=== PATIENT | female | born 1945 | race Caucasian/White ===

== ENCOUNTER 2022-05-26 21:59 | Emergency (ER) | payer MEDICARE, OTHER ==
[~2022-05-26] VITALS: Ht 165.1 cm; Wt 88.5 kg
[~2022-05-26 21:59] MED LIST: COZAAR25 MG PO; DILTIAZEM HCL120 MG PO; LEVOTHYROXINE125 MCG PO; METOPROLOL SUCC25 MG PO
[2022-05-27] MEDS ORDERED: K-TAB ER20 MEQ PO (03:50)
--- NOTE | 2022-05-27 21:30 | EKG ---
[facility] [address] [facility] [place] [address] Signed Sinus rhythm with premature atrial complexes Right superior axis deviation Pulmonary disease pattern Right ventricular hypertrophy with repolarization abnormality Septal infarct , age undetermined Cannot rule out Inferior infarct , age undetermined Abnormal ECG No previous ECGs available Confirmed by CAROL LUCERO MD ([id number]) on 05/27/2022 9:30:21 PM Electronically Signed By: CAROL LUCERO MD 05/27/222129 PATIENT NAME: VITA OSORIO LIVAN Electrocardiogram DATE OF : 47 PHYSICIAN: CAROL LUCERO MD REPORT #: [id number] REPORT IS CONFIDENTIAL AND NOT TO BE RELEASED WITHOUT AUTHORIZATION
== END 2022-05-27 04:07 | disposition home or self-care (01) ==
LOC: ED 21:59
DX: R51.9 Headache, unspecified (principal); E87.6 Hypokalemia; R53.1 Weakness; E03.9 Hypothyroidism, unspecified; Z88.2 Allergy status to sulfonamides; Z88.5 Allergy status to narcotic agent; Z91.040 Latex allergy status; Z79.899 Other long term (current) drug therapy
CPT/HCPCS: 36415; 51701; 70450; 71045; 80053; 81003; 84484; 85025; 93005; 93010; 99285-25; A9270; G0480; J1200; J2765; J3480; J7040

== ENCOUNTER 2022-11-30 08:35 | Day surgery (SDC) | payer MEDICARE, OTHER ==
[2022-11-24 16:28] VITALS: BP 126/67
[~2022-11-30] VITALS: Ht 157.5 cm; Wt 55.6 kg
[~2022-11-30 08:35] MED LIST changes: +AMITRIPTYLINE H10 MG PO; +CARAFATE1 GM PO; +DONEPEZIL HCL10 MG PO; +K-TAB ER20 MEQ PO; +PROPRANOLOL HCL20 MG PO; +PROTONIX40 MG PO; +SIMVASTATIN10 MG PO
[2022-11-30 08:45] VITALS: BP 154/89
[2022-11-30] MEDS ORDERED: ARFORMOTER15 MCG/2 M INH (08:48)
[2022-11-30] MEDS ORDERED: BUDESONIDE0.25 MG/2 INH (08:49)
[2022-11-30] MEDS ORDERED: POTASSIUM CHLO20 MEQ PO (08:49)
[2022-11-30] MEDS ORDERED: ADULT LOW DOSE81 MG PO (09:10)
--- NOTE | 2022-11-30 10:20 | NUR ---
11/30/22 1020 Adele Sherwood 1015-PATIENT ARRIVED TO PACU ON 2L NC RR EVEN. PATIENT NONAORUSABLE SLEEPING WITH MOUTH OPEN SB/SR. IVF INFUSING. ABDOMEN SOFT. 1019-PATIENT SLIGHTLY OPENS EYES TO VERBAL STIMULI IMMEDIATELY CLOSES. SLEEPING 2L NC 99% RR EVEN
[2022-11-30 10:53] VITALS: BP 118/60
--- NOTE | 2022-11-30 13:25 | OR ---
[facility] [address] [place], [place] [address] Signed DATE OF OPERATION: 11/30/2022 SURGEON: Bernardo Myers MD PREOPERATIVE DIAGNOSES: 1. Epigastric abdominal pain. 2. Anorexia with weight loss. POSTOPERATIVE DIAGNOSIS: Unremarkable upper endoscopy. PROCEDURE: EGD with CLOtest and biopsies of the antrum. ESTIMATED BLOOD LOSS: None. INDICATIONS: Vita is a 77-year-old female with a significant past medical history as listed in the history and physical. For about a year now, she has been having epigastric abdominal pain within 10 to 15 minutes of eating. Therefore, she has been anorexic and losing weight. She tried Prilosec without improvement. She says she can chew the food fine and swallow it fine. There is no description of vomiting, nausea or early satiety. There is no description of any gastroparesis. She is switched over to Protonix and Carafate a few days ago. She has undergone a barium swallow in April of this year. This was unremarkable. She has no hiatal hernia, no esophageal dysmotility, no strictures and no ulcers. She had her gallbladder removed back in 1998. She was asked to see me in the office for consideration of upper endoscopy. She came with her daughter. She has been using protein shakes at home. She has a four wheeled walker. She is fairly frail if not close to being cachectic. Vita made it very clear she wants no heroic measures. However, she has no formal POLST form. I explained to Vita and her daughter this would be sewell to complete with the help of her primary care provider. I had given them a pamphlet on colonoscopy. She told me she has been through two prior colonoscopies in the past. Consequently, she understands the nature of the test. There is risk including, but not limited to gas bloating, crampy abdominal pain, bleeding, perforation requiring surgery, and missed diagnosis. We also reviewed the need for monitored anesthesia care given her advanced age and advanced medical issues and her frail nature. She had expressed understanding and wished to proceed. PROCEDURE NOTE: Electronically Signed By: BERNARDO MYERS MD 11/30/22 1325 PATIENT NAME: VITA OSORIO OPERATIVE REPORT DATE OF : 47 REPORT #: [id number] PHYSICIAN: BERNARDO MYERS MD PCP: JUAN J MORATAYA MD REPORT IS CONFIDENTIAL AND NOT TO BE RELEASED WITHOUT AUTHORIZATION [facility] [address] [place], [place] [address] Signed Vita was brought into our endoscopy suite and placed in the supine position under monitored anesthesia care with propofol infusion per our nurse crown wheel assembler. A bite block was utilized. The posterior oropharynx was anesthetized with Hurricaine spray. The adult gastroscope was introduced and advanced under direct visualization of the camera out into the third portion of the duodenum. She had very healthy light green bile in the duodenum. The duodenum and pyloric channel were unremarkable. The entire stomach was unremarkable. We saw no evidence of any inflammatory changes or ulcerations. We went ahead and took a biopsy of the antrum for CLOtest as well as pathologic review. Upon retroflexion of the scope, there was no evidence of hiatal hernia. The scope was withdrawn up through the area of the GE junction, which was compliant without stricture. There was no gastric or esophageal varices. There was minimal disruption to her Z-line. There was no De Leon's mucosa. There is no distal esophagitis. The middle and upper esophagus were unremarkable. No issues with the vocal cords or arytenoids. After this, the gas was suctioned out and the gastroscope removed. Vita tolerated the procedure quite well. RECOMMENDATIONS: Vita is welcome to follow up in my office in 7 to 14 days to review her results. There has been some question if she has Alzheimer's disease, but I do not see that listed in our history and physical. I will address that with Vita and her daughter. Bernardo Myers MD ALB/MODL /[id number] cc: MD Juan J Toney MD Copies: BERNARDO MYERS MD, RUSSELL BARR MD ~ Electronically Signed By: BERNARDO MYERS MD 11/30/22 1325 PATIENT NAME: VITA OSORIO LIVAN OPERATIVE REPORT DATE OF : 47 REPORT #: [id number] PHYSICIAN: BERNARDO MYERS MD PCP: JUAN J MORATAYA MD REPORT IS CONFIDENTIAL AND NOT TO BE RELEASED WITHOUT AUTHORIZATION
--- NOTE | 2022-12-07 12:06 | PATH ---
[facility] [address] [facility] [place], [place] [address] Signed SPECIMEN(S): A ANTRUM/ANTRAL BIOPSY SPECIMEN SOURCE: A. ANTRUM/ANTRAL BIOPSY CLINICAL HISTORY: Epigastric pain FINAL PATHOLOGIC DIAGNOSIS: Antrum/antral biopsy: - Benign gastric-type mucosa with superficial mild chronic gastritis. - Helicobacter pylori immunostain is negative for organisms. JVR:llc MICROSCOPIC EXAMINATION: Histologic sections of all submitted blocks are examined by light microscopy. These findings, together with the gross examination, support the pathologic diagnosis. H. pylori immunostain performed on block A1 is negative. JVR:llc GROSS DESCRIPTION: The specimen, labeled and designated "Dayna, L, stomach, antrum/pylorus biopsy," is received in formalin and consists of 1 rai soft tissue fragment measuring 0.3 x 0.5 cm and is submitted entirely in (A1). MMA (under the direct supervision of a pathologist) The Gross Description was prepared using a voice recognition system. The report was reviewed for accuracy; however, sound-alike word errors, addition and/or deletions may occur. If there is any question about this report, please contact Client Services. ADDITIONAL NOTES: Immunohistochemical and/or in situ hybridization studies were performed on this case with the appropriate positive controls that react as expected. This test was developed, and its performance characteristics determined by [facility] ([facility] It has not been cleared or approved by the U.S. Food and Drug Administration. The FDA has determined that such clearance or approval is not necessary. This test is used for clinical purposes. It should not be regarded as investigational or for research. [facility]) is certified under the PATIENT NAME: VITA OSORIO PATHOLOGY DATE OF : 47 REPORT #: [id number] PHYSICIAN: KISHA GALLARDO PCP: JUAN J MORATAYA MD REPORT IS CONFIDENTIAL AND NOT TO BE RELEASED WITHOUT AUTHORIZATION [facility] [address] [place], [place] [address], [place] [address] Signed Clinical Laboratory Improvement Amendments of 1988 (CLIA) as qualified to perform high complexity clinical laboratory testing. This assay has not been validated for specimens that have been decalcified. PERFORMING LABORATORY: Technical component was performed by [facility] ([facility]), [address] [place] [id number] (CLIA# [id number]). Professional interpretation was performed by [facility], [address] [place] [id number] (CLIA#: [id number]). Diagnostician: Bruno Baker MD Pathologist Electronically Signed 12/07/2022 Copies: ~ PATIENT NAME: VITA OSORIO PATHOLOGY DATE OF : 47 REPORT #: [id number] PHYSICIAN: KISHA PATHOLOGY PCP: JUAN J MORATAYA MD REPORT IS CONFIDENTIAL AND NOT TO BE RELEASED WITHOUT AUTHORIZATION
== END 2022-11-30 11:00 | disposition home or self-care (01) ==
LOC: DS 08:35 → OPS 08:35 → DS 11:45
PROVIDERS: ATTEND Colon & Rectal Surgery
PROC: 0DB68ZX Excision of Stomach, Via Natural or Artificial Opening Endoscopic, Diagnostic (ICD-10-PCS; principal; 2022-11-30 09:00)
DX: K29.50 Unspecified chronic gastritis without bleeding (principal); I10 Essential (primary) hypertension; I48.0 Paroxysmal atrial fibrillation; Z88.2 Allergy status to sulfonamides; Z88.1 Allergy status to other antibiotic agents; Z88.5 Allergy status to narcotic agent; I47.10 Supraventricular tachycardia, unspecified; E03.9 Hypothyroidism, unspecified
CPT/HCPCS: 00731; 36415; 87077; 88305; 88342; J0690; J2001; J2704; J7121

== ENCOUNTER 2023-01-19 07:49 | Emergency (ER) | payer MEDICARE, OTHER ==
[~2023-01-19] VITALS: Ht 157.5 cm; Wt 55.3 kg
[~2023-01-19 07:49] MED LIST changes: +ADULT LOW DOSE81 MG PO; +ARFORMOTER15 MCG/2 M INH; +BUDESONIDE0.25 MG/2 INH; +POTASSIUM CHLO20 MEQ PO
--- OUTSIDE RECORDS SUMMARY | 2023-01-19 07:56 | XMS ---
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 Alen has no Care Guidelines for this patient. Shashi VISIT COUNT (12 MO.) [facility] TOTAL 3 NOTE: Visits indicate total known visits. ED/UCC VISIT TRACKING (12 MO.) 01/19/2023 07:50 [facility] [place] TYPE: Emergency COMPLAINT: - BLOODY STOOL, PAIN 01/14/2023 13:26 [facility] OR TYPE: Emergency DIAGNOSES: - Constipation, unspecified - Other injury of unspecified body region, initial encounter - RECTAL BLEEDING CONSTIPATION 05/26/2022 21:59 [facility] [place] TYPE: Emergency COMPLAINT: - HEADACHE DIAGNOSES: - Allergy status to narcotic agent - Allergy status to sulfonamides - Headache, unspecified - Hypokalemia - Hypothyroidism, unspecified - Latex allergy status - Other terminal gauger (current) drug therapy - Weakness INPATIENT VISIT TRACKING (12 MO.) No inpatient visits to display in this time frame [email or web address]
[2023-01-19 10:25] LABS: BASOPHILS 0.5 % (0-2); EOSINOPHILS 1.8 % (0-6); HEMATOCRIT 37.8 % (35.0-50.0); HEMOGLOBIN 12.6 g/dL (12.0-18.0); LYMPHOCYTES 16.5 % (24-44); MCH 35.3 (27-36); MCHC 33.2 g/dl (30-36); MCV 106.2 fl (81-99); MONOCYTES 7.6 % (0-12); NEUTROPHILS 73.6 % (39-80); PLATELET COUNT 157 K/uL (140-440); RBC 3.56 M/ul (4.3-5.7); RDW 15.3 (10.5-15.0)
[2023-01-19 10:41] LABS: ALBUMIN 3.4 g/dL (3.4-5.0); ALBUMIN/GLOBULIN RATIO 0.87 (1.1-2.4); ANION GAP 11.8 (7-21); BILIRUBIN, TOTAL 0.6 ng/dL (0.2-1.0); BUN/CREATININE RATIO 13.57 (6.0-28.6); CALCIUM 8.9 mg/dL (8.5-10.1); CREATININE, SERUM 1.4 mg/dL (0.55-1.02); POTASSIUM 3.8 mmol/L (3.5-5.1); PROTEIN, TOTAL 7.3 g/dL (6.4-8.2)
[2023-01-19 14:36] VITALS: BP 138/65
== END 2023-01-19 14:36 | disposition home or self-care (01) ==
LOC: ED 07:49
PROVIDERS: Emergency Medicine
DX: K62.5 Hemorrhage of anus and rectum (principal); I10 Essential (primary) hypertension; E03.9 Hypothyroidism, unspecified; Z88.1 Allergy status to other antibiotic agents; Z88.0 Allergy status to penicillin; Z88.2 Allergy status to sulfonamides; Z88.5 Allergy status to narcotic agent; Z91.040 Latex allergy status; Z88.8 Allergy status to other drugs, medicaments and biological substances; Z79.51 Long term (current) use of inhaled steroids; Z79.899 Other long term (current) drug therapy; Z79.82 Long term (current) use of aspirin; Z79.890 Hormone replacement therapy
CPT/HCPCS: 36415; 74022; 74176; 80053; 85025; 99284-25; A9270

== ENCOUNTER 2023-02-08 10:37 | Observation (INO) | payer MEDICARE, OTHER ==
[~2023-02-08] VITALS: Ht 157.5 cm; Wt 52.2 kg
--- OUTSIDE RECORDS SUMMARY | 2023-02-08 10:44 | XMS ---
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 Alen has no Care Guidelines for this patient. Shashi VISIT COUNT (12 MO.) 3 [facility] TOTAL 4 NOTE: Visits indicate total known visits. ED/C VISIT TRACKING (12 MO.) 02/08/2023 10:38 [facility] [place] TYPE: Emergency COMPLAINT: - DIFFICAULT BREATHING 01/19/2023 07:50 [facility] [place] TYPE: Emergency COMPLAINT: - BLOODY STOOL, PAIN DIAGNOSES: - Allergy status to narcotic agent - Allergy status to other antibiotic agents - Allergy status to other drugs, medicaments and biological substances - Allergy status to penicillin - Allergy status to sulfonamides - Essential (primary) hypertension - Hemorrhage of anus and rectum - Hormone replacement therapy - Hypothyroidism, unspecified - Latex allergy status - residential (current) use of aspirin - residential (current) use of inhaled steroids - Other rat exterminator (current) drug therapy 01/14/2023 13:26 [facility] OR TYPE: Emergency DIAGNOSES: - Constipation, unspecified - Other injury of unspecified body region, initial encounter - RECTAL BLEEDING CONSTIPATION 05/26/2022 21:59 [facility] [place] TYPE: Emergency COMPLAINT: - HEADACHE DIAGNOSES: - Allergy status to narcotic agent - Allergy status to sulfonamides - Headache, unspecified - Hypokalemia - Hypothyroidism, unspecified - Latex allergy status - Other rat exterminator (current) drug therapy - Weakness INPATIENT VISIT TRACKING (12 MO.) No inpatient visits to display in this time frame [email or web address]
[2023-02-08 11:13] LABS: HEMATOCRIT 36.7 % (35.0-50.0); HEMOGLOBIN 12.2 g/dL (12.0-18.0); LYMPHOCYTES 40.1 % (24-44); MCH 35.8 (27-36); MCHC 33.2 g/dl (30-36); MCV 107.6 fl (81-99); MONOCYTES 15.8 % (0-12); NEUTROPHILS 37.1 % (39-80); PLATELET COUNT 130 K/uL (140-440); RBC 3.41 M/ul (4.3-5.7); RDW 14.6 (10.5-15.0)
[2023-02-08 11:30] LABS: ALBUMIN 3.2 g/dL (3.4-5.0); ALBUMIN/GLOBULIN RATIO 0.91 (1.1-2.4); ANION GAP 12.8 (7-21); BILIRUBIN, TOTAL 0.5 ng/dL (0.2-1.0); BUN/CREATININE RATIO 12.25 (6.0-28.6); CREATININE, SERUM 1.55 mg/dL (0.55-1.02); POTASSIUM 3.8 mmol/L (3.5-5.1); PROTEIN, TOTAL 6.7 g/dL (6.4-8.2)
[2023-02-08 12:02] LABS: INFLUENZA B NAA NEGATIVE (NEGATIVE); RESPIRATORY SYNCYTIAL VIR NAA NEGATIVE (NEGATIVE)
--- NOTE | 2023-02-08 13:30 | NUR ---
RECIEVED BEDSIDE REPORT WITH ALYSHA CHANG.
--- NOTE | 2023-02-08 13:40 | NUR ---
PT ARRIVED TO MS ROOM 112 VIA STRETCHER. DAUGHTER AT BEDSIDE. ORIENTED TO CALL LIGHT, IN REACH.
[2023-02-08 13:44] VITALS: BP 123/63
--- NOTE | 2023-02-08 14:18 | NUR ---
UR NOTE [facility] GENERAL CRITERIA: OBSERVATION CARE (ISC) 02/08/23 MET OBSERVATION CARE ADMISSION CRITERIA
--- NOTE | 2023-02-08 15:30 | NUR ---
Spoke with pt and her spouse. 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 She also pays all the bills. Per pt and spouse, pt has a worsening memory. Pt spends most of her time in her room in [place]. She states she gets sob if she walks and she has anxiety and does not feel well if she leaves her room. The deny financial issues. Per spouse he plans on assisting pt to take her meds from now on. Pt took 2 days of meds. She is upset by this and does not understand how this could have happened. I attempted to reassure her, her spouse will now assist her. Pt begging this RN to speak with and ask if she can go home as she is uncomfortable here. shakes head, "no." states she has to stay here as she had an episode and he is concerned she will have problems at home. Will follow up tomorrow. Pt and spouse deny any needs for dc.
--- NOTE | 2023-02-08 15:40 | NUR ---
PT USED CALL LIGHT APPROPRIATELY TO USE BATHROOM. PT ABLE TO WALK TO THE BATHROOM USING A FWW. LIMITED ASSIST PROVIDED. CLEAN BRIEF APPLIED. WARM BLANKET PROVIDED ONCE BACK IN BED. CALL LIGHT IN REACH. AT BEDSIDE,
[2023-02-08] MEDS ORDERED: SERTRALINE HCL25 MG PO (17:12)
[2023-02-08] MEDS ORDERED: LEVOTHYROXINE100 MCG PO (17:14)
--- NOTE | 2023-02-08 17:15 | NUR ---
PT CAME TO NURSES STATION WITH CONCERNS KITCHEN BROUGHT PT SOLID FOOD MEAL. THE DAUGHTER MENTIONED THE PT HAS ATE BLENDED FOODS AND A HIGH MAX PROTEIN SHAKE FOR DINNER ONLY. DISCUSSED WITH DAUGHTER THAT WE WILL CHANGE THE ORDER TO PUREED FOOD WITH A HIGH MAX PROTIEN SHAKE FOR DINNER. AT THIS TIME ENSURE DELIVERED TO ROOM. SPOKE WITH MD, ORDER UPDATED IN PT CHART.
[2023-02-08 17:28] VITALS: BP 130/59
[2023-02-08] MEDS ORDERED: METAMUCIL0.4 GM PO (17:39)
[2023-02-08] MEDS ORDERED: YUMVS VITAMIN25 MCG PO (17:39)
[2023-02-08] MEDS ORDERED: VITAMIN C500 M1 PO (17:40)
[2023-02-08] MEDS ORDERED: MULTI VITAMIN1 EACH PO (17:40)
--- NOTE | 2023-02-08 17:41 | NUR ---
medications reconciled using pharmacy records and patient family interview
--- NOTE | 2023-02-08 17:58 | NUR ---
PT CALLED TO USE BATHROOM. THIS RN IN ROOM TO ASSIST PT. PT VOID 50ML. URINE IS MALODOROUS. ASKED PT IS SHE FEEL SHE HAS TO URINATE OFTEN. PT DENIED. MENTIONED THAT PT HAS HAD FREQUENT URINE INFECTIONS. DISCUSSED WITH MD PT SYMPTOMS, VERBAL ORDER RECIEVED FOR URINE SAMPLE.
--- NOTE | 2023-02-08 19:40 | NUR ---
PATIENT RESTING IN BED WITH AT BEDSIDE. PATIENT STATING SHE WOULD LIKE TO HAVE A BM. NO FURTHER NEEDS. CALL LIGHT IN REACH.
--- NOTE | 2023-02-08 20:00 | NUR ---
PATIENT IN BED. PATIENT ASSISSTED TO BATHROOM WITH MINIMAL SBA TO VOID. VS AND I&Os OBTAINED AND RECORDED. PATIENT AND PATIENTS REPORTS CONSTIPATION. THIS RN INITIATED NIO FOR BOWEL CARE. EDUCATED PATIENT ON POC. ALL QUESTIONS ANSWERED. SUPPOSITORY GIVEN BY YENY ENCARNACION, AND NO STOOL IN RECTUM NOTED. PM MEDS GIVE PER ORDER. IV FLUSHED AND SL. ASSESSMENT COMPLETE. PATIENT HAS ACTIVE BOWEL TONES. ABDOMEN SOFT AND NONTENDER. NO FURTHER NEEDS. CALL LIGHT IN REACH.
[2023-02-08 20:02] VITALS: BP 161/65
--- NOTE | 2023-02-08 21:21 | NUR ---
CALL RECEIVED FROM CCU ALYSHA OLIVO REGARDING ARTIFACT ON TELE. ALYSHA SAINI MADE AWARE AND IN ROOM ASSESSING TELE LEADS/PLACEMENT.
--- NOTE | 2023-02-08 22:11 | NUR ---
PATIENT RESTING IN BED ON BACK. RESPIRATIONS EVEN AND UNLABORED. BED ALARM ON FOR SAFETY. CALL LIGHT IN REACH.
--- NOTE | 2023-02-08 23:03 | NUR ---
CALL LIGHT ANSWERED, pt UP SBA WITH FWW TO BATHROOM TO VOID. UA COLLECTED AND SENT TO LAB, pt BACK TO BED WITH BED ALARM ON AND CALL LIGHT IN REACH. DAUGHTER REMAINS IN ROOM. PRIMARY RN VIOLETTA AND ALYSHA SAINI BOTH AWARE.
[2023-02-08 23:06] LABS: BILIRUBIN, URINE NEGATIVE (negative); BLOOD/HGB, URINE SMALL (Negative); KETONE, URINE NEGATIVE (Negative); LEUK ESTERASE, URINE LARGE (negative); NITRITE, URINE POSITIVE (negative)
[2023-02-08 23:12] LABS: EPITHELIAL CELLS, URINE SQUAMOUS 1+ /lpf (0-1+); RED BLOOD CELLS, URINE 0-1 /hpf (0-5)
[2023-02-08 23:13] LABS: BACTERIA, URINE 3+ /hpf (negative); CASTS, URINE NONE SEEN \\lpf; CRYSTALS, URINE NONE SEEN (0-1+); REFLEX CULTURE, URINE Yes (No); WHITE BLOOD CELLS, URINE >50 /HPF (0-5)
--- NOTE | 2023-02-09 00:21 | NUR ---
PATIENT IN BED RESTING ON BACK. RESPIRATIONS EVEN AND UNLABORED. DAUGHTER AT BEDSIDE. CALL LIGHT IN REACH.
--- NOTE | 2023-02-09 01:05 | NUR ---
CALL LIGHT ANSWERED. PATIENT REPORTS NEEDING TO VOID. PATIENT SBA WITH FWW TO BATHROOM. PATIENT ONLY ABLE TO VOID A FEW DRIBBLES OF URINE. PATIENT REQUESTS TO SLEEP IN CHAIR. PATIENT STATES SHE "SLEEPS IN A CHAIR AT HOME". WARM BLANKET PROVIDED TO BOTH PATIENT AND DAUGHTER WHO IS AT BEDSIDE. NO FURTHER NEEDS. CALL LIGHT IN REACH.
[2023-02-09 01:32] VITALS: BP 140/59
--- NOTE | 2023-02-09 01:42 | NUR ---
PATIENT RESTING IN CHAIR. VS OBTAINED AND RECORDED. PATIENTS DAUGHTER AND BOTH AT BEDSIDE. PATIENT REPORTS 4/10 RIGHT FOOT PAIN FROM A PREVIOUS INJURY. PRN PAIN MEDICATION ADMINISTERED, SEE MAR. FRESH WATER PROVIDED. NO FURTHER NEEDS. CALL LIGHT IN REACH.
--- NOTE | 2023-02-09 02:06 | NUR ---
PATIENT SBA WITH FWW FROM CHAIR TO BED. PATIENT RESTING IN BED ON BACK. STATES NO FURTHER NEEDS. AT BEDSIDE. CALL LIGHT IN REACH. BED ALARM ON FOR SAFETY.
--- NOTE | 2023-02-09 03:35 | NUR ---
PATIENT ASSISTED TO THE BR A SBA W/FWW. PATIENT ABLE TO VOID. PATIENT IS BACK IN BED RESTING. PATIENT DENIES ANY FURTHER NEEDS. CALL LIGHT IN REACH. BED ALARM ON FOR SAFETY. HSUBAND AT BEDSIDE.
--- NOTE | 2023-02-09 04:38 | NUR ---
PATIENT IN BED RESTING ON BACK WITH EYES CLOSED. RESPIRATIONS EVEN AND UNLABORED. AT BEDSIDE. CALL LIGHT IN REACH.
[2023-02-09 05:39] VITALS: BP 130/62
--- NOTE | 2023-02-09 05:48 | EKG ---
[facility] [address] [facility] [place] [address] Signed Sinus bradycardia with marked sinus arrhythmia Low voltage QRS Borderline ECG When compared with ECG of 24-NOV-2022 09:00, premature atrial complexes are no longer present Questionable change in QRS axis Nonspecific T wave abnormality has replaced inverted T waves in Anterior leads Confirmed by RHETT ALCARAZ MD ([id number]) on 02/09/2023 5:48:13 AM Electronically Signed By: RHETT ALCARAZ 02/09/23 0548 PATIENT NAME: VITA OSORIO LIVAN Electrocardiogram DATE OF : 47 PHYSICIAN: RHETT ALCARAZ REPORT #: [id number] REPORT IS CONFIDENTIAL AND NOT TO BE RELEASED WITHOUT AUTHORIZATION
--- NOTE | 2023-02-09 05:51 | NUR ---
PATIENT RESTING IN BED WITH AT BEDSIDE. VS AND I&O'S OBTAINED AND RECORDED. ASSESSMENT COMPLETE. PATIENT HR LOW 50s. O2 SAT 97%. PULSES PRESENT IN BUE AND BLE. PATIENT HAS NO FURTHER NEEDS. CALL LIGHT IN REACH. PATIENT ASSISSTED TO BATHROOM WITH SBA AND FWW TO VOID. BACK TO BED. PATIENT SRI WELL.
[2023-02-09 05:52] LABS: HEMATOCRIT 36.4 % (35.0-50.0); HEMOGLOBIN 12.2 g/dL (12.0-18.0); MCH 35.8 (27-36); MCHC 33.5 g/dl (30-36); MCV 106.7 fl (81-99); PLATELET COUNT 123 K/uL (140-440); RBC 3.42 M/ul (4.3-5.7); RDW 14.3 (10.5-15.0)
[2023-02-09 06:01] LABS: ANION GAP 12.8 (7-21); BUN/CREATININE RATIO 11.88 (6.0-28.6); CALCIUM 9.1 mg/dL (8.5-10.1); CREATININE, SERUM 1.43 mg/dL (0.55-1.02); POTASSIUM 3.8 mmol/L (3.5-5.1)
[2023-02-09 06:06] LABS: BANDS, MANUAL DIFF 9; EOSINOPHILS, MANUAL DIFF 3; LYMPHOCYTES, MANUAL DIFF 45; MONOCYTES, MANUAL DIFF 4; NEUTROPHILS, MANUAL DIFF 39
--- NOTE | 2023-02-09 08:32 | NUR ---
CALL LIGHT ANSWERED, PATIENT IN TO BR WITH SBA AND AND FWW(100ML OF VERY CONCENTRATED URINE) PATIENT BACK TO CHAIR FOR BREAKFAST. DAUGHTER AND IN ROOM.
--- NOTE | 2023-02-09 09:00 | NUR ---
RECIEVED REPORT AT 0725 FROM NURSE. PT WAS AWAKE WITH IN THE ROOM. THEY NEEDED NO CARES AT THAT TIME. AT THIS TIME PATIENT IS IN HER CHAIR SITTING UP TALKING WITH AND DAUGHTER. MEDS GIVEN. NO CONCERNS AT THIS TIME. NO ADDITIONAL CARES NEEDED OR REQUESTED AT THIS TIME CALL LIGHT WITHIN REACH
--- NOTE | 2023-02-09 09:30 | NUR ---
Spoke with Natalie. She denies needs. Spouse and daughter in the room. Pt plans on dc to home today with family.
[2023-02-09] MEDS ORDERED: CEPHALEXIN500 MG PO (09:45)
--- NOTE | 2023-02-09 10:00 | NUR ---
PT CALLED ASKING TO USE RESTROOM. THIS RN IN ROOM TO ASSIST. PT WALKED SBA, FWW TO BATHROOM. RETURNED TO CHAIR, BLANKETS APPLIED, FAMILY AT BEDSIDE, CALL LIGHT IN REACH. ABX ADMINISTERED.
--- NOTE | 2023-02-09 10:52 | NUR ---
MS ROUNDS. PT AND FAMILY EXPRESSED AISHA AND OPTIMISM AT PENDING DISCHARGE. PROVIDED PRAYER. 15 MINUTES.
--- NOTE | 2023-02-09 11:00 | NUR ---
VITALS AND I&OS CHARTED. PATIENT SITITNG UP IN RECLINER, CALL LIGHT IN EASY REACH
[2023-02-09 11:19] VITALS: BP 127/57
== END 2023-02-09 12:00 | disposition home or self-care (01) ==
LOC: ED 10:37 → MS 10:39
PROVIDERS: Emergency Medicine; ADMIT Family Medicine; ATTEND Family Medicine
DX: R00.1 Bradycardia, unspecified (principal); J84.10 Pulmonary fibrosis, unspecified; N39.0 Urinary tract infection, site not specified; G31.84 Mild cognitive impairment of uncertain or unknown etiology; I48.91 Unspecified atrial fibrillation; I13.0 Hypertensive heart and chronic kidney disease with heart failure and stage 1 through stage 4 chronic kidney disease, or unspecified chronic kidney disease; N18.32 Chronic kidney disease, stage 3b; I50.9 Heart failure, unspecified; E78.5 Hyperlipidemia, unspecified; E03.9 Hypothyroidism, unspecified; Z20.822 Contact with and (suspected) exposure to COVID-19; Z95.2 Presence of prosthetic heart valve; Z88.5 Allergy status to narcotic agent; Z88.1 Allergy status to other antibiotic agents; Z88.8 Allergy status to other drugs, medicaments and biological substances; Z88.2 Allergy status to sulfonamides; Z79.82 Long term (current) use of aspirin; Z79.890 Hormone replacement therapy; Z79.899 Other long term (current) drug therapy
CPT/HCPCS: 36415; 71045; 80048; 80053; 81001; 83880; 84484; 85025; 87077; 87088; 87186; 87502; 93005; 93010; 94640; 94760; 96372; 99285-25; A9270; C9803; G0378; J1650; U0002

== ENCOUNTER 2023-03-31 17:04 | Observation (INO) | payer MEDICARE, OTHER ==
[~2023-03-31] VITALS: Ht 157.5 cm; Wt 56.4 kg
[~2023-03-31 17:04] MED LIST changes: +CEPHALEXIN500 MG PO; +LEVOTHYROXINE100 MCG PO; +METAMUCIL0.4 GM PO; +MULTI VITAMIN1 EACH PO; +SERTRALINE HCL25 MG PO; +VITAMIN C500 M1 PO; +YUMVS VITAMIN25 MCG PO
[2023-03-31] MEDS ORDERED: POTASSIUM CHLO20 MEQ PO (17:28)
[2023-03-31 18:05] LABS: BASOPHILS 1.2 % (0-2); EOSINOPHILS 1.2 % (0-6); HEMATOCRIT 33.3 % (35.0-50.0); HEMOGLOBIN 11.2 g/dL (12.0-18.0); LYMPHOCYTES 22.8 % (24-44); MCH 36.4 (27-36); MCHC 33.8 g/dl (30-36); MCV 107.8 fl (81-99); MONOCYTES 7.4 % (0-12); NEUTROPHILS 67.4 % (39-80); RBC 3.09 M/ul (4.3-5.7); RDW 14.1 (10.5-15.0)
[2023-03-31 18:25] LABS: ALBUMIN 3.3 g/dL (3.4-5.0); ALBUMIN/GLOBULIN RATIO 0.87 (1.1-2.4); ANION GAP 11.9 (7-21); BILIRUBIN, TOTAL 0.5 ng/dL (0.2-1.0); BUN/CREATININE RATIO 23.48 (6.0-28.6); CALCIUM 9.1 mg/dL (8.5-10.1); CREATININE, SERUM 1.49 mg/dL (0.55-1.02); POTASSIUM 3.9 mmol/L (3.5-5.1); PROTEIN, TOTAL 7.1 g/dL (6.4-8.2)
[2023-03-31 19:39] LABS: INR 1.11 (0.80-1.30); PROTIME 13.6 Sec (11.2-14.2)
--- NOTE | 2023-03-31 20:18 | NUR ---
BEDSIDE REPORT RECEIVED FROM RACHANA IVERSON RN, JOHN MARTIN RN AT BEDSIDE STARTING ADMISSION. SERGO AT BEDSIDE.
--- NOTE | 2023-03-31 20:20 | NUR ---
[facility]HT TO FLOOR FROM ER. pt TRANSFERRED VIA 3PA,A/OX4. VSS. TELE IN PLACE, ORDERED SERAQUEL GIVEN-SEE EMAR. pt ORIENTED TO ROOM AND POC DISCUSSED WITH BOTH pt AND DAUGHTER. pt PASSES SWALLOW EVAL, FRESH WATER AND SNACK PROVIDED TO pt AND DAUGHTER, CALL LIGHT IN REACH. ADMISSION COMPLETED.
[2023-03-31 20:21] VITALS: BP 116/59
--- NOTE | 2023-03-31 21:00 | NUR ---
INFORMED BY CCU RN KALEB, pt's EKG SHOWED ABNORMALITY- SINUS ARRHYTHMIA W/ PVC'S AND PVC'S PER ALYSHA MANUEL. PER CCU RN, CLINICAL JUDGEMENT TO OBTAIN EKG BASELINE. RT ALLEN IN ROOM AND OBTAINING EKG. FLOAT ALYSHA ELLINGTON TO SWITCH OUT TELE LEADS. PRIMARY RN TERESA MADE AWARE AND UPDATED.
[2023-03-31 22:00] VITALS: BP 116/59
--- NOTE | 2023-03-31 23:45 | NUR ---
RN INTO ROOM TO COMPLETE ADMISSION ASSESSMENT, PT UPSET, STATING SHE WON'T BE ABLE TO SLEEP WITH THE SX SOUND OF PURE WICK, PT STATES SHE WANTS TO GET UP TO BR, DISCUSSED OPTIONS AND PT STATES SHE WANTS TO STAND AND GO TO BR, PT AGREES TO USE BSC WITH RN ASSIST, PURE WICK REMOVED AND PT 1PA TO BSC, PT ABLE TO VOID 200ML YELLOW URINE, ASSISTED WITH PERICARE, FRESH ATTENDS APPIED, PT WITH SOME DIZZINESS UPON RISING BUT ABLE TO TRANSFER BACK TO BED, PT REPOSITIONED UP IN BED, CALMING, DENIES PAIN WITH TRANSFER, ASSESSMENT COMPLETED, HEMATOMA BRUISE PARIMETER MARKED WITH SURGICAL PEN, PT DENIES NEED FOR PAIN MEDICATION, PT VOICES IT IS HARD TO GROW OLD, STATES IN THE PAST SHE FELT LIKE DRIVING TO A DILL AND DRIVING INTO IT, JUST WANTED TO END HER LIFE, PT STATES SHE IS NOT FEELING THIS WAY NOW, DAUGHTER AT BEDSIDE AND REPORTS PT DOESN'T DRIVE AND LIVES WITH HER, PT'S HUSBANDS AND DAUGHTER'S . PT STATES SHE IS VERY GRATEFUL TO HER DAUGHTER FOR ALL HER CARE.
[2023-04-01 01:13] VITALS: BP 114/49
--- NOTE | 2023-04-01 02:46 | NUR ---
NURSES CALLED TO ROOM, PT ASSISTED UP TO BSC TO VOID PER REQUEST, 1-2PA, SLIGHT TRANSIENT DIZZINESS WITH STANDING, PT VOIDED 100ML YELLOW URINE, GRIMACING WHEN MOVES AND TOUCHES RIGHT GLUT AREA AT SITE OF HEMATOMA, WHEN BACK TO BED, PT DENIES PAIN OR NEED FOR MEDICATION, PT RESTING QUIETLY.
--- NOTE | 2023-04-01 03:35 | NUR ---
PT RESTING QUIETLY, RESP EVEN REG, WITHOUT DISTRESS.
[2023-04-01 05:07] VITALS: BP 107/48
--- NOTE | 2023-04-01 05:07 | NUR ---
VS DONE PER WAGON DRIVER SALESPERSON AND REVIEWED PER RN, PT UP TO BSC AND VOIDED 200ML.
--- NOTE | 2023-04-01 05:15 | NUR ---
LAB IN FOR AM BLOOD DRAW.
[2023-04-01 05:29] LABS: BASOPHILS 0.3 % (0-2); EOSINOPHILS 0.5 % (0-6); HEMATOCRIT 24.1 % (35.0-50.0); HEMOGLOBIN 8.2 g/dL (12.0-18.0); LYMPHOCYTES 19.3 % (24-44); MCH 36.2 (27-36); MCHC 33.8 g/dl (30-36); MONOCYTES 9.7 % (0-12); NEUTROPHILS 70.2 % (39-80); PLATELET COUNT 114 K/uL (140-440); RBC 2.26 M/ul (4.3-5.7); RDW 13.9 (10.5-15.0)
[2023-04-01 05:47] LABS: ALBUMIN 2.7 g/dL (3.4-5.0); ALBUMIN/GLOBULIN RATIO 0.87 (1.1-2.4); ANION GAP 12.2 (7-21); BILIRUBIN, TOTAL 0.6 ng/dL (0.2-1.0); BUN/CREATININE RATIO 23.74 (6.0-28.6); CALCIUM 8.6 mg/dL (8.5-10.1); CREATININE, SERUM 1.39 mg/dL (0.55-1.02); POTASSIUM 4.2 mmol/L (3.5-5.1); PROTEIN, TOTAL 5.8 g/dL (6.4-8.2)
--- NOTE | 2023-04-01 06:40 | NUR ---
PT ASSISTED UP TO BSC PER CARLOS ENCARNACION, PT VOIDED, ASSISTED BACK TO BED, RIGHT HIP (GLUTEAL AREA) BRUISE HAS NOT EXTENDED BORDERS AND FEELS SLIGHTLY SOFTER NOW. PT DECLINES ANY PAIN MEDICINE AT THIS TIME, DAUGHTER REMAINS AT BEDSIDE AND VERY SUPPORTIVE.
--- NOTE | 2023-04-01 07:26 | EKG ---
[facility] [address] [facility] [place] [address] Signed Sinus rhythm with premature supraventricular complexes Low voltage QRS Borderline ECG When compared with ECG of 08-FEB-2023 10:48, premature supraventricular complexes are now present Confirmed by KUN GILL MD ([id number]) on 04/01/2023 7:26:10 AM Electronically Signed By: KUN GILL 04/01/23 0726 PATIENT NAME: JOVITA LIVAN Electrocardiogram DATE OF : 47 PHYSICIAN: KUN GILL REPORT #: [id number] REPORT IS CONFIDENTIAL AND NOT TO BE RELEASED WITHOUT AUTHORIZATION
--- NOTE | 2023-04-01 07:38 | NUR ---
DR MYERS MADE AWARE OF EKG ORDER-SEE NOTE FROM EARLIER IN THE SHIFT. PER CCU RN, TELE SHOWED SINUS ARRHYTHMIA WITH PVC'S AND PAC'S. PRELIMINARY EKG READING- SINUS RHYTHM WITH PREMATURE SUPRAVENTRICULAR COMPLEXES, LOW VOLTAGE QRS. TELEPHONE ORDER READ BACK TO PUT IN ORDER FOR HOSPITALIST CONSULT FOR EKG REVIEW AND MANAGEMENT OF NEEDED. TIRE REPAIRMAN KAYIE MADE AWARE ALONG WITH DR GILL-HOSPITALIST.
--- NOTE | 2023-04-01 08:54 | NUR ---
DR. MYERS ROUNDING ON PATIENT, PLAN TO TITRATE IV FLUIDS, DC GUERRERO AND ADVANCE DIET TO ICE CHIPS. IV DILAUDID EFFECTIVE FOR PAIN CONTROL, NOW RATES PAIN 3/10 ON PAIN SCALE, STATES "THIS IS TOLERABLE". VISTOR AT BEDSIDE. CALL LIGHT WITHIN REACH. NO OTHER NEEDS AT THIS TIME. PATIENT AGREES TO PLAN OF CARE FOR. ANSWERED QUESTIONS AND CONCERNS.
--- NOTE | 2023-04-01 08:57 | NUR ---
INTO ROOM PATIENT RESTING IN SUPINE POSITION IN BED WITH LEGS ELEVATED ON PILLOWS. PATIENT RATES PAIN 4/10 AND STATES "I AM PRETTY SORE THIS MORNING". PROVIDED PATIENT WITH WARM BLANKETS, DR. LOUIS PANDYA ON UNIT. FRESH ICEWATER. LUNG SOUNDS WNL, DIMINISHED AND COURSE AT BASELINE. FULL BODY ASSESSMENT DONE. NO OTHER NEEDS AT THIS TIME.
[2023-04-01 09:57] VITALS: BP 103/47
[2023-04-01 10:15] VITALS: BP 103/47
[2023-04-01 11:08] LABS: BASOPHILS 0.9 % (0-2); EOSINOPHILS 0.9 % (0-6); HEMATOCRIT 24.1 % (35.0-50.0); HEMOGLOBIN 8.1 g/dL (12.0-18.0); LYMPHOCYTES 17.7 % (24-44); MCHC 33.7 g/dl (30-36); MCV 106.8 fl (81-99); MONOCYTES 13.8 % (0-12); NEUTROPHILS 66.7 % (39-80); PLATELET COUNT 106 K/uL (140-440); RBC 2.26 M/ul (4.3-5.7)
--- NOTE | 2023-04-01 12:00 | NUR ---
PATIENT UP WITH WALKER, AMBULATED 10 FEET OUT INTO BAÑUELOS. PATIENT VERBALIZED FEELING LIGHT-HEADED. PATIENT BACK TO BED. HEMOTOMA TO HIP DOES NOT APPEAR TO BE INCREASING IN SIZE. LET PATIENT AND DAUGHTER KNOW THAT DR. GILL WOULD BE ROUNDING AND THAT CBC WAS BACK. PATIENT STATED " I AM READY TO GO HOME"
[2023-04-01 13:51] VITALS: BP 113/47
[2023-04-01] MEDS ORDERED: QUETIAPINE FUMA25 MG PO (14:10)
--- NOTE | 2023-04-01 14:12 | NUR ---
PATIENT ATTEMPTED TO GET UP TO AMBULATE IN THE HALLS, PATIENT COMPLAINED OF DIZZINESS AND SAT BACK DOWN ON THE BED. PATIENT THEN AGREED TO AMBULATE OVER TO RECLINER WITH WALKER. APPEARS STEADY ON FEET. RATES PAIN 10/10 ON PAIN SCALE. NEW ORDER FOR LIDOCAINE TOPICAL PATCH. PLAN TO AMBULATE IN HALLS AND THEN MAY GO DC HOME IF ABLE TOLERATE ACTIVITY. DR. GILL ROUNDING ON PATIENT.
[2023-04-01] MEDS ORDERED: BUDESONIDE0.5 MG/2 M INH (14:29)
--- NOTE | 2023-04-01 15:34 | NUR ---
PATIENT ATTEMPTING TO AMBULATE IN HALLS, AMBULATED ABOUT 20 FEET. NEEDED TO REST AND SIT IN WHEELCHAIR. PATIENT INCREASED RR 24 STATES " I DON'T FEEL LIKE I CAN MOVE AIR" DAUGHTER REPORTED PATIENT HOME MEDICATION REGIME SHE GETS BREATHING TX X2 A DAY AND HAS NOT BEEN GETTING THEM. LUNG SOUNDS CLEAR, PATIENT MOVING AIR WELL. PATIENT ALSO REPORTED FEELING DIZZY. OXYGEN SATURATION 99% ON ROOM AIR. BACK TO ROOM IN WHEELCHAIR. SITING UP IN RECLINER. RATES PAIN 10/10 ON PAIN SCALE WITH AMBULATION. DAUGHTER CONCERNED STATES "MY MOM NORMALLY HAS A VERY HIGH PAIN TOLERANCE". CALLED RT, WHO WILL ASSESS PATIENT AND ORDER BREATHING TX. UPDATED PATIENT AND DAUGHTER ON PLAN FOR CARE.
--- NOTE | 2023-04-01 16:15 | NUR ---
BREATHING TREATMENT EFFECTIVE. PATIENT REPORTED FEELING BETTER AND ABLE TO BREATHE BETTER. DAUGHTER STATED "SHE LOOKS SO MUCH BETTER" PATIENT REQUESTED TO AMBULATE IN [place] AGAIN. PATIENT LUNGS CLEAR, 02 SATURATION 98% ROOM AIR. ALERT AND ORIENTED.
[2023-04-01] MEDS ORDERED: LIDOCAINE1 EACH TD (16:58)
--- NOTE | 2023-04-01 17:15 | NUR ---
PATIENT AMBULATED IN HALLS, TOLERATED WELL. REPORTED TO DR. GILL. NEW ORDERS FOR DISCHARGE. PROVIDED DISCHARGE INSTRUCTION TO PATIENT, DISCUSSED SIGNS OF HYPOVALEMIA, WHAT TO DO IF PAIN WORSENS, TO TAKE TYLENOL AND USE TOPICAL LIDOCAINE PATCHES FOR PAIN CONTROL. DISCUSSED ACTIVITY AT HOME, FALL PREVENTION, AND FOLLOWING UP WITH PCP. PATIENT AND DAUGHTER ALSO ACKNOWLEDGED STOPPING ASA AND FOLLOWING UP WITH PCP IN ONE WEEK. ANSWERED ALL QUESTIONS AND CONCERNS. DRESSAGE JUDGE ASSISTED WITH PROVIDING PATIENT WITH WHEELCHAIR RIDE TO FRONT.
--- NOTE | 2023-04-01 17:18 | CONS ---
[facility] [address] [place], [place] [address] Signed DATE OF CONSULTATION: 04/01/2023 CHIEF COMPLAINT: Fall in bathtub. HISTORY OF PRESENT ILLNESS: Vita is a 77-year-old female I have helped in the past. She lives with her daughter. They have a regular bathtub. She got dizzy and fell in the bathtub onto her right hip area around noon. She had a hematoma developing in the right gluteal area, so she came to emergency room around 5 p.m. She has been using baby aspirin each day. She was given tranexamic acid. She was admitted overnight for observation. As expected, repeat hemoglobin has dropped from 11.2 down to 8.2. In addition, she was having some extra heartbeats when we checked an EKG. She is having premature supraventricular contractions in between her other heart beats. We did have her medical service see her as well. PAST MEDICAL HISTORY: Hypertension, chronic renal insufficiency, and hypothyroidism. PAST SURGICAL HISTORY: Includes a bovine aortic valve replacement, partial right nephrectomy, tonsillectomy, thyroidectomy, appendectomy, right knee ligament repair, neck surgery, low back surgery and cholecystectomy. SOCIAL HISTORY: She does not smoke or drink. Dr. Guzman is her primary care provider. She prefers the [facility]. [place] is her at [phone], but her daughter is always with her as she is today. They apparently live together at home. FAMILY HISTORY: None. REVIEW OF SYSTEMS: She had 10 systems reviewed and it seems like her memory is not the best. ALLERGIES: Sulfa, iodine, codeine, hydrocodone, Augmentin, simvastatin, latex, and levofloxacin. MEDICATIONS: Protonix, sucralfate, donepezil, arformoterol, budesonide, aspirin, sertraline, levothyroxine, vitamin D, Metamucil, vitamin C, multivitamin, potassium chloride. PHYSICAL EXAMINATION: Electronically Signed By: BERNARDO MYERS MD 04/01/23 1718 PATIENT NAME: VITA OSORIO CONSULTATION DATE OF : 47 REPORT #: [id number] PHYSICIAN: BERNARDO MYERS MD PCP: JUAN J GUZMAN MD REPORT IS CONFIDENTIAL AND NOT TO BE RELEASED WITHOUT AUTHORIZATION [facility] [address] [place], [place] [address] Signed VITAL SIGNS: Her blood pressure is 107/48, heart rate 67, respiratory rate 18, temperature 98.2. She is 97% on room air. She is 5 feet 2 inches at 56 kg with a body mass index of 22. GENERAL: Vita is a 77-year-old female lying supine, semi-recumbent in her hospital bed. Her daughter is at the bedside. I have known them for several years. She seems to be at her baseline. It looks like she prior has some level of memory loss and/or a little of dementia. She is in no acute distress. She is a little painful over that right gluteal area and has an obvious hematoma with ecchymoses underneath the skin. It is probably pushing 10 cm. LABORATORY DATA: Her white blood count 7.5, hemoglobin was 11.2, it is down to 8.2 with a mean cell volume of 107, platelets are 114. Her BUN is 33, creatinine is 1.39. Liver function tests are negative. Albumin is 2.7. INR is 1.1. EKG showed the premature supraventricular contractions. RADIOGRAPHIC STUDIES: The CT scan reviewed along with the report does show this right subcutaneous hematoma about 9.4 x 8.5 x 6.7 cm. Probably a little bit of bleeding on the medial side last night when she had her CT scan. ASSESSMENT AND PLAN: Vita is a 77-year-old female on baby aspirin each day, who fell in the shower and has a moderate to large right gluteal subcutaneous hematoma. She did receive the tranexamic acid. She is going to get a repeat hemoglobin here in about an hour. If things are stable, she will likely go home later today. I have reviewed this with Vita, her daughter and Dr. Velazquez. Bernardo Myers MD ALB/MODL /[id number] cc: MD Bernardo Copeland MD Electronically Signed By: BERNARDO MYERS MD 04/01/23 1718 PATIENT NAME: VITA OSORIO CONSULTATION DATE OF : 47 REPORT #: [id number] PHYSICIAN: BERNARDO MYERS MD PCP: JUAN J GUZMAN MD REPORT IS CONFIDENTIAL AND NOT TO BE RELEASED WITHOUT AUTHORIZATION [address] [address] Signed Copies: JUAN J GUZMAN MD, ANDREW L MD ~ Electronically Signed By: BERNARDO MYERS MD 04/01/23 1718 PATIENT NAME: VITA OSORIO LIVAN CONSULTATION DATE OF : 47 REPORT #: [id number] PHYSICIAN: BERNARDO MYERS MD PCP: JUAN J GUZMAN MD REPORT IS CONFIDENTIAL AND NOT TO BE RELEASED WITHOUT AUTHORIZATION
== END 2023-04-01 17:28 | disposition home or self-care (01) ==
LOC: ED 17:04 → MS 17:06
PROVIDERS: Emergency Medicine; Family Medicine; Internal Medicine; ADMIT Colon & Rectal Surgery; ATTEND Colon & Rectal Surgery
DX: S30.0XXA Contusion of lower back and pelvis, initial encounter (principal); I13.0 Hypertensive heart and chronic kidney disease with heart failure and stage 1 through stage 4 chronic kidney disease, or unspecified chronic kidney disease; I50.9 Heart failure, unspecified; N18.9 Chronic kidney disease, unspecified; E89.0 Postprocedural hypothyroidism; Z88.1 Allergy status to other antibiotic agents; Z88.2 Allergy status to sulfonamides; Z88.5 Allergy status to narcotic agent; Z88.8 Allergy status to other drugs, medicaments and biological substances; Z91.040 Latex allergy status; W18.30XA Fall on same level, unspecified, initial encounter; Y92.002 Bathroom of unspecified non-institutional (private) residence as the place of occurrence of the external cause
CPT/HCPCS: 36415; 72170; 72193; 80053; 85025; 85060; 85610; 85730; 93005; 93010; 94640; 94760; 96375; 96376; 99284-25; A9270; J1170; J7040; J7121; Q9967

== ENCOUNTER 2024-08-07 10:09 | Emergency (ER) | payer MEDICARE, OTHER ==
[~2024-08-07] VITALS: Ht 157.5 cm; Wt 58.0 kg
[~2024-08-07 10:09] MED LIST changes: +BUDESONIDE0.5 MG/2 M INH; +LIDOCAINE1 EACH TD; +QUETIAPINE FUMA25 MG PO
[2024-08-07] MEDS ORDERED: GABAPENTIN100 MG PO (10:22)
[2024-08-07] MEDS ORDERED: PANTOPRAZOLE SO40 MG PO (10:22)
[2024-08-07] MEDS ORDERED: FUROSEMIDE20 MG PO (10:22)
[2024-08-07 10:48] LABS: BASOPHILS 1.3 % (0.1-1.2); EOSINOPHILS 5.2 % (0.7-5.8); HEMOGLOBIN 11.5 g/dL (11.2-15.7); LYMPHOCYTES 36.2 % (19.3-51.7); MCH 36.1 PG (25.6-32.2); MCHC 33.8 g/dL (32.2-35.5); MCV 106.6 fL (79.4-94.8); MONOCYTES 12.2 % (4.7-12.5); NEUTROPHILS 44.5 % (34.0-71.1); PLATELET COUNT 160 K/uL (182-369); RBC 3.19 M/uL (3.93-5.22)
[2024-08-07] MEDS ORDERED: SODIUM CHLORIDE 0.9% 1,000 ML IV PRN (11:00)
[2024-08-07] MEDS ORDERED: HYDROmorphone HCL 1 MG/ML SYR IV ONE (11:00)
[2024-08-07] MEDS ORDERED: ondansetron HCL 4 MG/2 ML VIAL IV ONE (11:00)
[2024-08-07 11:01] LABS: ALBUMIN/GLOBULIN RATIO 0.77 (1.1-2.4); ANION GAP 9.2 (7-21); BILIRUBIN, TOTAL 0.4 mg/dL (0.2-1.0); BUN/CREATININE RATIO 14.54 (6.0-28.6); CALCIUM 8.6 mg/dL (8.5-10.1); CREATININE, SERUM 1.65 mg/dL (0.55-1.02); POTASSIUM 3.2 mmol/L (3.5-5.1); PROTEIN, TOTAL 6.9 g/dL (6.4-8.2)
[2024-08-07 14:10] LABS: BILIRUBIN, URINE NEGATIVE (negative); BLOOD/HGB, URINE NEGATIVE (Negative); KETONE, URINE NEGATIVE (Negative); LEUK ESTERASE, URINE MODERATE (negative); NITRITE, URINE NEGATIVE (negative)
[2024-08-07 14:17] LABS: CRYSTALS, URINE NONE SEEN (0-1+); EPITHELIAL CELLS, URINE SQUAMOUS 3+ /lpf (0-1+); RED BLOOD CELLS, URINE 0-1 /hpf (0-5); WHITE BLOOD CELLS, URINE 21-40 /HPF (0-5)
[2024-08-07 14:18] LABS: BACTERIA, URINE 2+ /hpf (negative); CASTS, URINE NONE SEEN \\lpf; COLLECTION TYPE, URINE CLEAN CATCH; REFLEX CULTURE, URINE No (No)
[2024-08-07] MEDS ORDERED: CEPHALEXIN500 M1 PO (14:54)
[2024-08-07] MEDS ORDERED: HYDROCODON-ACE1 EA10 PO (14:54)
[2024-08-07 15:15] VITALS: BP 122/68
== END 2024-08-07 15:27 | disposition home or self-care (01) ==
LOC: ED 10:09
PROVIDERS: Emergency Medicine
DX: N39.0 Urinary tract infection, site not specified (principal); I10 Essential (primary) hypertension; E03.9 Hypothyroidism, unspecified; Z79.52 Long term (current) use of systemic steroids; Z88.2 Allergy status to sulfonamides; Z88.5 Allergy status to narcotic agent; Z91.040 Latex allergy status; Z88.0 Allergy status to penicillin; Z88.8 Allergy status to other drugs, medicaments and biological substances
CPT/HCPCS: 36415; 51798; 71250; 74176; 80053; 81001; 85025; 96374; 96375; 99284-25; J1171; J2405; J7030

== ENCOUNTER 2024-10-20 15:29 | Emergency (ER) | payer OTHER, MEDICARE ==
[~2024-10-20] VITALS: Ht 157.5 cm; Wt 58.6 kg
[~2024-10-20 15:29] MED LIST changes: +CEPHALEXIN500 M1 PO; +FUROSEMIDE20 MG PO; +GABAPENTIN100 MG PO; +HYDROCODON-ACE1 EA10 PO; +PANTOPRAZOLE SO40 MG PO
[2024-10-20 16:47] LABS: BLOOD/HGB, URINE NEGATIVE (Negative); KETONE, URINE NEGATIVE (Negative); LEUK ESTERASE, URINE NEGATIVE (negative); NITRITE, URINE NEGATIVE (negative)
[2024-10-20 16:59] LABS: BASOPHILS 0.9 % (0.1-1.2); EOSINOPHILS 3.6 % (0.7-5.8); LYMPHOCYTES 39.1 % (19.3-51.7); MCH 35.4 PG (25.6-32.2); MCHC 33.4 g/dL (32.2-35.5); MCV 105.8 fL (79.4-94.8); MONOCYTES 9.2 % (4.7-12.5); NEUTROPHILS 46.9 % (34.0-71.1); RBC 3.25 M/uL (3.93-5.22)
[2024-10-20 17:08] LABS: INR 1.14 (0.80-1.30); PROTIME 14.1 Sec (11.2-14.2)
[2024-10-20 17:13] LABS: ALT (SGPT) 18.0 U/L (14-59); AST (SGOT) 21.0 U/L (15-37); GLOMERULAR FILTRATION RATE,EST 40.0 mL/min (>60); PROTEIN, TOTAL 7.8 g/dL (6.4-8.2); UREA NITROGEN 28.0 mg/dL (7-18)
[2024-10-20 17:55] VITALS: BP 129/62
== END 2024-10-20 17:55 | disposition home or self-care (01) ==
LOC: ED 15:29
PROVIDERS: Emergency Medicine
DX: S00.03XA Contusion of scalp, initial encounter (principal); S20.211A Contusion of right front wall of thorax, initial encounter; I10 Essential (primary) hypertension; E03.9 Hypothyroidism, unspecified; W18.30XA Fall on same level, unspecified, initial encounter; Z79.899 Other long term (current) drug therapy; Z79.51 Long term (current) use of inhaled steroids; Z88.2 Allergy status to sulfonamides; Z88.5 Allergy status to narcotic agent; Z91.041 Radiographic dye allergy status; Z88.1 Allergy status to other antibiotic agents; Z91.048 Other nonmedicinal substance allergy status; Z88.8 Allergy status to other drugs, medicaments and biological substances
CPT/HCPCS: 36415; 70450; 71250; 80053; 81003; 85025; 85610; 99284-25